=== PATIENT | female | born 1995 | race African-American/Black ===

== ENCOUNTER 2017-07-22 17:59 | Emergency (ER) | payer BC, OTHER ==
[~2017-07-22] VITALS: Ht 160 cm; Wt 52.2 kg
[~2017-07-22 17:59] MED LIST: ONDANSETRON HCL4 M2 PO; PHENERGAN 25 MG25 M1 PO
[2017-07-22 18:50] VITALS: BP 143/82
[2017-07-22] MEDS ORDERED: LABETALOL HCL200 MG PO (18:54)
[2017-07-22] MEDS ORDERED: NAPROSYN500 MG PO (19:00)
== END 2017-07-22 19:19 | disposition home or self-care (01) ==
LOC: ER 17:59
DX: J02.9 Acute pharyngitis, unspecified (principal); F10.99 Alcohol use, unspecified with unspecified alcohol-induced disorder

== ENCOUNTER 2017-07-24 08:30 | Emergency (ER) | payer BC ==
[~2017-07-24] VITALS: Ht 160 cm; Wt 52.2 kg
[~2017-07-24 08:30] MED LIST changes: +LABETALOL HCL200 MG PO; +NAPROSYN500 MG PO
[2017-07-24] MEDS ORDERED: KEFLEX500 MG PO (09:46)
[2017-07-24] MEDS ORDERED: MOBIC15 MG PO (09:47)
[2017-07-24 10:09] VITALS: BP 144/79
== END 2017-07-24 10:10 | disposition home or self-care (01) ==
LOC: ER 08:30
DX: J02.0 Streptococcal pharyngitis (principal); F10.99 Alcohol use, unspecified with unspecified alcohol-induced disorder

== ENCOUNTER → 2017-08-07 | Outpatient (CLI) | payer BC, OTHER ==
[~2017-08-07] MED LIST changes: +KEFLEX500 MG PO; +MOBIC15 MG PO
== END ==
LOC: ULTRA 10:19
DX: I15.0 Renovascular hypertension (principal)

== ENCOUNTER 2017-12-28 15:51 | Emergency (ER) | payer BC, OTHER ==
[~2017-12-28] VITALS: Ht 160 cm; Wt 53.5 kg
[2017-12-28 16:52] LABS: ABSOLUTE NEUTROPHILS 4.6 thou/uL (1.4-8.2); BASOPHILS 0.5 % (0.0-2.0); EOSINOPHILS 1.2 % (0.0-3.0); HEMATOCRIT 40.5 % (37.0-47.0); HEMOGLOBIN 14.1 gm/dL (12.0-15.0); LYMPHOCYTES 27.5 % (24.0-44.0); MCH 31.3 pg (26.0-34.0); MCHC 34.8 g/dL (28.0-37.0); PLATELET COUNT 242 thou/uL (150-400); POLYS 61.8 % (36.0-66.0); RDW 14.6 % (10.5-14.5); WBC 7.5 thou/uL (4.0-11.0)
[2017-12-28 17:02] LABS: CREATININE 0.9 mg/dL (0.6-1.0)
[2017-12-28 17:06] LABS: POTASSIUM 2.6 mmol/L (3.5-5.1)
[2017-12-28] MEDS ORDERED: XANAX 0.25 MG0.25 MG PO (17:10)
[2017-12-28] MEDS ORDERED: POTASSIUM20 PO (17:11)
== END 2017-12-28 17:26 | disposition home or self-care (01) ==
LOC: ER 15:51
PROVIDERS: Emergency Medicine
DX: R20.2 Paresthesia of skin (principal); F41.9 Anxiety disorder, unspecified; E87.6 Hypokalemia

== ENCOUNTER 2018-08-06 22:41 | Emergency (ER) | payer BC ==
[~2018-08-06] VITALS: Ht 160 cm; Wt 55.8 kg
[~2018-08-06 22:41] MED LIST changes: +POTASSIUM20 PO; +XANAX 0.25 MG0.25 MG PO
[2018-08-06] MEDS ORDERED: PRENATAL PO (22:55)
[2018-08-07 00:10] VITALS: BP 127/67
== END 2018-08-07 00:15 | disposition home or self-care (01) ==
LOC: ER 22:41
DX: B35.4 Tinea corporis (principal); I10 Essential (primary) hypertension

== ENCOUNTER 2018-08-25 09:32 | Emergency (ER) | payer BC ==
[~2018-08-25] VITALS: Ht 160 cm; Wt 56.7 kg
[~2018-08-25 09:32] MED LIST changes: +PRENATAL PO
[2018-08-25] MEDS ORDERED: HYDROXYZINE PAM25 M1 PO (10:30)
[2018-08-25 10:49] VITALS: BP 125/89
== END 2018-08-25 10:49 | disposition home or self-care (01) ==
LOC: ER 09:32
DX: O99.341 Other mental disorders complicating pregnancy, first trimester (principal); F41.9 Anxiety disorder, unspecified; R51 Headache; R06.02 Shortness of breath; R11.0 Nausea; I10 Essential (primary) hypertension; Z3A.13 13 weeks gestation of pregnancy